=== PATIENT | male | born 1980 | race Caucasian/White ===

== ENCOUNTER 2024-02-23 16:29 | Emergency (ER) | payer SELFPAY ==
[2024-02-23] VITALS (7 sets, daily range): BP systolic 117–135; BP diastolic 71–80; PULSE 54–66; TEMP 36.9; O2SAT 92–96; BMI 25.1
--- NOTE | 2024-02-23 17:12 | ECG_ITS ---
The [facility] Test Date: 2024-02-23 Pat Name: WILLA VERAS Department: Room: - Gender: Male Director Of Outreach: : 1980 Requested By: GINNY HOBBS Order Number: [id number] Reading MD: WALLY REEVES Measurements Intervals [place] Rate: 56 P: 60 GA: 168 QRS: 73 QRSD: 84 T: 50 QT: 394 QTc: 385 Interpretive Statements 1100 Sinus rhythm 9110 normal ECG No previous ECG available for comparison Electronically Signed On 02-23-2024 21:00:22 EST by WALLY REEVES
--- NOTE | 2024-02-23 17:14 | ED.CHESTPAI1 ---
HPI - Chest Pain General Chief Complaint: Chest Pain Stated Complaint: CHEST PAINS Time Seen by Provider: 02/23/24 16:49 Source: patient Mode of arrival: walk-in Limitations: no limitations History of Present Illness HPI narrative: Patient is a 43-year-old male who presents to the emergency department for evaluation of left lateral chest wall pain that has been intermittent since 10 AM. He states that he gets intermittent sharp stabbing pain in the area with no rashes or color change to the chest wall. He denies any injury or trauma. Pain is not worse with a deep breath or movement. He has no abdominal pain, nausea, vomiting. He has had no recent illness, fevers, chills, cough or congestion. No peripheral edema. He has no major medical problems and does not take any medications on a daily basis. Related Data Previous Rx's ?Medication ?Instructions ?Recorded methylprednisolone 4 mg tablets in 4 mg PO DAILY #21 ea 02/23/24 a dose pack (Medrol (Drew)) Allergies Allergy/AdvReac Type Severity Reaction Status Date / Time No Known Drug Allergies Allergy Verified 02/23/24 17:04 Review of Systems ROS Constitutional Denies: fever or chills Ears, nose, mouth, and throat Denies: throat pain or nasal congestion Cardiovascular Reports: chest pain Respiratory Denies: shortness of breath, cough, wheezing, pain on inspiration or coughing up blood Gastrointestinal Denies: abdominal pain, nausea or vomiting Integumentary/Breast Denies: rash Neurological Denies: headache, numbness in extremities or weakness in extremities Hematologic/Lymphatic Denies: easy bruising or easy bleeding PFSH PFSH Social History Little interest or pleasure in doing things: not at all Feeling down, depressed, or hopeless: not at all Exam Narrative Exam Narrative: Gen.: Awake, alert, in no distress Head: Normocephalic, atraumatic ENT: Moist mucous membranes Respiratory: No respiratory distress, lungs clear bilaterally Cardio: Regular rate and rhythm, no tenderness of the chest wall, no rashes appreciated of the left lateral chest wall or axilla Gastrointestinal: Abdomen is soft, nondistended and nontender to palpation Extremities: Moves extremities equally, no pedal edema Psych: Normal mood and affect Neuro: No focal neuro deficit Skin: Warm, dry, intact Constitutional Vital Signs, click to edit/add: Last Vital Signs Temp 98.4 F 02/23/24 17:05 Pulse 56 L 02/23/24 18:00 Resp 19 02/23/24 18:00 BP 118/75 02/23/24 18:00 Pulse Ox 94 L 02/23/24 18:00 O2 Del Method Room Air 02/23/24 17:05 Course Vital Signs Vital signs: Vital Signs Pulse Rate 57 L 02/23/24 17:03 Respiratory Rate 20 02/23/24 17:03 Pulse Oximetry 95 02/23/24 17:03 Temperature 98.4 F 02/23/24 17:05 Pulse Rate 56 L 02/23/24 18:00 Respiratory Rate 19 02/23/24 18:00 Blood Pressure 118/75 02/23/24 18:00 Pulse Oximetry 94 L 02/23/24 18:00 Oxygen Delivery Method Room Air 02/23/24 17:05 MDM - Chest Pain MDM Narrative Medical decision making narrative: Patient's heart score is a 2, he is hemodynamically stable with a normal EKG, symptoms have been ongoing over 7 hours. Labs including D-dimer are within normal limits and chest x-ray is unremarkable. Patient medicated with Toradol and Solu-Medrol for suspected musculoskeletal/nerve pain. He is discharged home with a Medrol Dosepak. Rhythm evaluated by attending physician prior to discharge. Return to the ER if symptoms change or worsen SHARED APC VISIT, PHYSICIAN ATTESTATION: [id number] I performed a substantive part of the MDM during the patient?s E/M visit. I personally evaluated and examined the patient. I personally made or approved the documented management plan and acknowledge its risk of complications. Medical Records Data Attestation: I reviewed the patient's medical records. Lab Data Attestation: I reviewed the patient's lab results. Labs: Lab Results 02/23/24 Range/Units 17:15 WBC 6.4 (4.0-11.0) 10^3/uL RBC 4.78 (4.70-6.10) 10^6/uL Hgb 15.2 (14.0-18.0) g/dL Hct 44.8 (42.0-54.0) % MCV 93.7 (80.0-94.0) fL MCH 31.8 (25.9-34.0) pg MCHC 33.9 (29.9-35.2) g/dL RDW 12.9 (11.0-15.0) % Plt Count 249 (150-450) 10^3/uL MPV 10.6 (9.5-13.5) fL Neut % (Auto) 53.3 (43.0-75.0) % Lymph % (Auto) 36.1 (20.5-60.0) % [place] % (Auto) 9.3 (1.7-12.0) % Eos % (Auto) 0.9 (0.9-7.0) % Baso % (Auto) 0.2 (0.2-2.0) % Neut # (Auto) 3.4 (1.4-6.5) 10^3/uL Lymph # (Auto) 2.3 (1.2-3.8) 10^3/uL [place] # (Auto) 0.6 (0.3-0.8) 10^3/uL Eos # (Auto) 0.1 (0.0-0.7) 10^3/uL Baso # (Auto) 0.0 (0.0-0.1) 10^3/uL Abs Immat Gran (auto) 0.01 (0.00-0.03) 10^3/uL Imm/Tot Granulo (auto) 0.2 (0.0-0.5) % PT 10.2 (9.0-11.6) sec INR 0.96 D-Dimer <0.19 (<=0.59) mg/L FEU Sodium 142 (136-145) mmol/L Potassium 4.2 (3.5-5.1) mmol/L Chloride 104 (98-107) mmol/L Carbon Dioxide 29.7 (21.0-32.0) mmol/L Anion Gap 12.5 BUN 14.0 (7.0-18.0) mg/dL Creatinine 1.03 (0.70-1.30) mg/dL Est GFR ( Amer) >60 (>=60 mL/min/1.73m^2) Est GFR (Non-Af Amer) >60 (>=60 mL/min/1.73m^2) BUN/Creatinine Ratio 13.6 Glucose 93 (74-106) mg/dL Lactate 1.4 (0.4-2.0) mmol/L Calcium 8.9 (8.5-10.1) mg/dL Total Bilirubin 0.2 (0.2-1.0) mg/dL AST 15 (15-37) U/L ALT 29 (16-63) U/L Alkaline Phosphatase 65 (46-116) U/L Troponin I High Sens <4.0 L (4.0-76.1) pg/mL NT-Pro-B Natriuret Pep 7.0 (<=450.0) pg/mL Total Protein 6.3 L (6.4-8.2) g/dL Albumin 3.5 (3.4-5.0) g/dL Globulin 2.8 g/dL Albumin/Globulin Ratio 1.2 Lipase 47.0 (16.0-77.0) U/L Imaging Data Chest x-ray: Attestation: I have reviewed the pertinent imaging results. ECG Data Attestation: I personally reviewed and interpreted this ECG as follows: (Normal sinus rhythm at a rate of 56, no acute ST elevation or ectopy. EKG reviewed by attending physician) Heart Score History: Slightly/Non-Suspicious ECG: Normal Age: >45-<65 years Risk Factors: 1 or 2 Risk Factors Troponin: <Normal Limit Total Heart Score Recommendations & Risks:: 2 Discharge Plan Discharge Chief Complaint: Chest Pain Clinical Impression: Nonspecific chest pain Patient Disposition: Home, Self-Care Time of Disposition Decision: 18:32 Condition: Good Mode of Transportation: Private Vehicle Prescriptions / Home Meds: New methylprednisolone [Medrol (Drew)] 4 mg tablets,dose pack 4 mg PO DAILY Qty: 21 0RF Rx Instructions: TAKE PER DOSEPAK INSTRUCTIONS Print Language: Turkish Instructions: Chest Wall Pain (ED) Additional Instructions: Call the office of your primary care doctor to arrange for follow-up within the above-stated timeframe. Your ED visit was focused on your acute issue and does not replace primary care. You should review your labs, imaging, and diagnoses from this ED visit with your primary care physician. There may be non-emergent/ incidental findings that need further evaluation. You should review your vital signs including blood pressure with your PCP. If you were prescribed medications you should discuss possible side-effects and drug interactions with your pharmacist. Call 911 or go to the nearest Emergency Department if you develop any new or worsening symptoms. Seek immediate medical attention if you develop: worsening chest pain, new chest pain, nausea, vomiting, weakness, numbness, tingling, excessive sweating, shortness of breath, difficulty breathing, loss of motion in your arms or legs, or any new or worsening symptoms. Follow-up with your doctor to discuss ER visit for chest pain today and decide if further workup such as a stress test is needed in the outpatient setting to obtain a baseline. Referrals: GINNY HOBBS DO [Family Provider] - 1 week
[2024-02-23] MEDS: METHYLPREDNISOLONE SOD SUCC PF 125 MG/2 ML VIAL IVP (17:30)
[2024-02-23] MEDS: KETOROLAC TROMETHAMINE 30 MG/ML VIAL IVP (17:30)
[2024-02-23 17:41] LABS: Basophils Percent Auto 0.2 % (0.2-2.0); Eosinophils Absolute Auto 0.1 10^3/uL (0.0-0.7); Eosinophils Percent Auto 0.9 % (0.9-7.0); Hematocrit 44.8 % (42.0-54.0); Hemoglobin 15.2 g/dL (14.0-18.0); Immature Granulocytes Abs Auto 0.01 10^3/uL (0.00-0.03); Immature Granulocytes Pct Auto 0.2 % (0.0-0.5); Lymphocytes Absolute Auto 2.3 10^3/uL (1.2-3.8); Lymphocytes Percent Auto 36.1 % (20.5-60.0); Mean Corpuscular HGB Conc 33.9 g/dL (29.9-35.2); Mean Corpuscular Hemoglobin 31.8 pg (25.9-34.0); Mean Corpuscular Volume 93.7 fL (80.0-94.0); Mean Platelet Volume 10.6 fL (9.5-13.5); Monocytes Absolute Auto 0.6 10^3/uL (0.3-0.8); Monocytes Percent Auto 9.3 % (1.7-12.0); Neutrophils Absolute Auto 3.4 10^3/uL (1.4-6.5); Neutrophils Percent Auto 53.3 % (43.0-75.0); Platelet Count 249 10^3/uL (150-450); Red Blood Count 4.78 10^6/uL (4.70-6.10); Red Cell Distribution Width 12.9 % (11.0-15.0); White Blood Count 6.4 10^3/uL (4.0-11.0)
[2024-02-23 18:01] LABS: INR 0.96; Prothrombin Time 10.2 sec (9.0-11.6)
[2024-02-23 18:07] LABS: Lactate/Lactic Acid 1.4 mmol/L (0.4-2.0)
[2024-02-23 18:12] LABS: Alanine Aminotransferase 29 U/L (16-63); Albumin Globulin Ratio 1.2; Albumin Level 3.5 g/dL (3.4-5.0); Alkaline Phosphatase 65 U/L (46-116); Anion Gap 12.5; Aspartate Amino Transferase 15 U/L (15-37); BUN Creatinine Ratio 13.6; Bilirubin Total 0.2 mg/dL (0.2-1.0); Calcium 8.9 mg/dL (8.5-10.1); Carbon Dioxide 29.7 mmol/L (21.0-32.0); Chloride 104 mmol/L (98-107); D Dimer <0.19 mg/L FEU (<=0.59); Estimated GFR (African America >60 (>=60 mL/min/1.73m^2); Estimated GFR (Non-African Ame >60 (>=60 mL/min/1.73m^2); Globulin 2.8 g/dL; Glucose 93 mg/dL (74-106); Potassium 4.2 mmol/L (3.5-5.1); Sodium 142 mmol/L (136-145); Total Protein 6.3 g/dL (6.4-8.2); Troponin I High Sensitivity <4.0 pg/mL (4.0-76.1)
--- NOTE | 2024-02-23 18:30 | XR_ITS ---
The [address] [address] Patient Name: WILLA VERAS MRN: [id number] date: 1980 Sex: M Assigned Patient Location: ER Current Patient Location: ED.MAIN Accession/Order Number: [id number] Exam Date: 02/23/2024 18:25 Report Date: 02/23/2024 18:53 At the request of: LYDIA HERNANDEZ Procedure: XR chest 1V ONE-VIEW CHEST RADIOGRAPH, 02/23/2024 6:25 PM EST COMPARISON: Chest, 10/18/2009 CLINICAL HISTORY: Chest pain on-and-off since 10:00 AM today. FINDINGS: No acute cardiopulmonary disease. No pulmonary edema, pneumothorax, or pleural effusion. Normal heart size. No acute osseous abnormality. Old healed fracture deformity of the left clavicle. XR/XR chest 1V IMPRESSION: No acute abnormality identified. Electronically authenticated by: Amrita NICHOLAS Date: 02/23/2024 18:53
== END 2024-02-23 19:02 | disposition home or self-care (01) ==
PROVIDERS: Physician Assistant; Emergency Provider Student in an Organized Health Care Education/Training Program; Family Provider Family Medicine
DX: R07.89 Other chest pain (principal)
CPT/HCPCS: 36415; 71045; 80053; 83605; 83690; 83880; 84484; 85025; 85378; 85610; 93005; 96374; 96375; 99285; J1885; J2919